=== PATIENT | female | born 1940 | race Caucasian/White ===

== ENCOUNTER 2018-05-16 05:49 | Inpatient (IN) | payer MEDICARE ==
[~2018-05-16] VITALS: Ht 152.4 cm; Wt 60.1 kg
[2018-05-16 06:05] LABS: Calcium, Ionized (POC) 1.12 mmol/L (1.10-1.46); Chloride (POC) 98 mmol/L (98-108); Creatinine (POC) 0.7 mg/dL (0.6-1.0); Glucose (ISTAT POC) 103 mg/dL (70-99); Hemoglobin (POC) 12.6 g/dL (12.0-16.0); Sodium (POC) 137 mmol/L (135-148); Total CO2 (POC) 26 mmol/L (21-32)
[2018-05-16 06:21] LABS: BASOPHILS ABSOLUTE AUTO 0.04 K/mm3 (0.00-0.23); BASOPHILS PERCENT AUTO 1 % (0-2); EOSINOPHILS PERCENT AUTO 2 % (0-6); Hematocrit 37.6 % (33.0-51.0); Hemoglobin 12.6 g/dL (11.5-16.0); IMMATURE GRAN ABSOLUTE AUTO 0.03 K/mm3 (0.00-0.10); IMMATURE GRAN PERCENT AUTO 0 % (0-1); LYMPHOCYTES ABSOLUTE AUTO 1.27 K/mm3 (0.84-5.20); LYMPHOCYTES PERCENT AUTO 19 % (21-46); MONOCYTES ABSOLUTE AUTO 0.69 K/mm3 (0.16-1.47); MONOCYTES PERCENT AUTO 10 % (4-13); Mean Corpuscular HGB 32.2 pg (26.0-34.0); Mean Corpuscular HGB Conc 33.5 g/dL (31.5-36.5); Mean Corpuscular Volume 96 fL (80-100); NEUTROPHILS ABSOLUTE AUTO 4.61 K/mm3 (1.96-9.15); NEUTROPHILS PERCENT AUTO 69 % (41-73); Platelet Count 288 K/mm3 (150-400); RDW Standard Deviation 41.9 fL (35.1-46.3); Red Blood Cell Count 3.91 M/mm3 (3.80-5.20); White Blood Cell Count 6.74 K/mm3 (4.00-11.30)
[2018-05-16 06:36] LABS: Alanine Aminotransfer (ALT/SGP 26 U/L (12-78); Albumin, Blood 3.2 g/dL (3.4-5.0); Albumin/Globulin Ratio 0.9 (0.8-1.8); Alk Phos 145 U/L (50-136); Anion Gap 9 mmol/L (6-16); Aspartate Aminotrans (AST/SGOT 23 U/L (12-37); Bilirubin, Total 0.5 mg/dL (0.1-1.0); Blood Urea Nitrogen 13 mg/dL (8-24); Bun/Creatinine Ratio 20.5 (12.0-20.0); CO2, Blood 27 mmol/L (21-32); Chloride, Blood 102 mmol/L (98-108); Creatinine, Blood 0.64 mg/dL (0.40-1.00); Globulin, Blood 3.5 g/dL (2.2-4.0); Glomerular Filtration Rate >60 (60-); Glucose, Blood 99 mg/dL (70-99); Magnesium, Blood 1.7 mg/dL (1.6-2.4); Potassium, Blood 3.2 mmol/L (3.5-5.5); Sodium, Blood 138 mmol/L (136-145); Total Protein, Blood 6.7 g/dL (6.4-8.2)
[2018-05-16] MEDS ORDERED: FOLBIC RF TABL1 EACH PO (07:55)
[2018-05-16] MEDS ORDERED: CITRACAL + D31 EACH PO (07:56)
[2018-05-16] MEDS ORDERED: LEVSOD50 PO (12:57)
[2018-05-16] MEDS ORDERED: ALLERCLEAR10 MG PO (12:58)
[2018-05-16] MEDS ORDERED: CRANBERRY250 MG PO (13:00)
[2018-05-16] MEDS ORDERED: ACET500 PO (13:01)
[2018-05-16] MEDS ORDERED: METO50 PO (13:01)
[2018-05-16] MEDS ORDERED: CITRACAL + D M1 EACH PO (13:05)
[2018-05-16] MEDS ORDERED: VITAMIN B122500 MCG PO (13:10)
[2018-05-16] MEDS ORDERED: PROBIOTIC-10 11 EACH PO (13:12)
[2018-05-16] MEDS ORDERED: Hair, Skin & N1 EACH PO (13:13)
[2018-05-16] MEDS ORDERED: ASPI81CH PO (13:14)
[2018-05-16] MEDS ORDERED: ATOR10 PO (13:15)
[2018-05-16 13:19] LABS: Prothrombin Time Results 10.6 Sec (9.7-11.5)
--- NOTE | 2018-05-17 04:44 | NUR ---
SHIFT SUMMARY: APPROXX 2029 PATIENT ARRIVED TO ROOM PCU16 VIA GURNEY FROM ER. PATIENT ALERT AND ORIENTED, ABLE TO TRANSFER FROM GURNEY TO BED AND FROM BED TO BSC WITH FWW AND 1 PERSON ASSIST, HEPARIN VARIFIED WITH SKULL SPLITTER AND CHARGE NURSE. PATIENT GLUTEAL AND CALVES CRAMPING INTERMITTENTLY, WARM BLANKETS AND PAIN MEDICATIONS PROVIDED WITH SOME RELIEF. STAFF FROM [facility] CALLED VERIFIYING PATIENT NPO AND STATING THAT THEY WOULD TRY FOR 1000 AM FOR PROCEEDURE. VSS, CALL LIGHT WITHIN REACH, BED LOW AND LOCKED.
[2018-05-17 05:47] LABS: Anion Gap 9 mmol/L (6-16); Blood Urea Nitrogen 13 mg/dL (8-24); Bun/Creatinine Ratio 25.3 (12.0-20.0); CHOL/HDL RATIO 2.8; CO2, Blood 26 mmol/L (21-32); Calcium, Blood 8.5 mg/dL (8.5-10.1); Chloride, Blood 105 mmol/L (98-108); Cholesterol 159 mg/dL (50-200); Creatinine, Blood 0.51 mg/dL (0.40-1.00); Glomerular Filtration Rate >60 (60-); Glucose, Blood 112 mg/dL (70-99); HDL Cholesterol 56 mg/dL (>39); LDL/HDL RATIO 1.5; Low Density Lipoprotein Chol 82 mg/dL (0-110); Potassium, Blood 3.7 mmol/L (3.5-5.5); Sodium, Blood 140 mmol/L (136-145); Triglycerides 103 mg/dL (30-160); Very Low Density Lipoprot Chol 20 mg/dL (6-32)
--- NOTE | 2018-05-17 08:13 | NUR ---
This student nurse was given permission by the patient to access their medical information.
--- NOTE | 2018-05-17 14:51 | NUR ---
1215 PT RECEIVED BACK FROM [facility] [place]. ALERT AND ORIENTED X3. RIGHT WRIST SOFT, NO BLEED OR HEMATOMA, TR BAND CDI. PT RESTING IN BED. 1415 TR BAND CDI. 2 CC OF AIR REMOVED, NO BLEED NOTED 1435 SLIGHT BLEEDING NOTED TO RIGHT WRIST TR BAND SITE. 1 CC OF AIR REPLACED, NO BLEEDING NOTED AT THIS TIME. WILL CONTINUE TO MONITOR.
--- NOTE | 2018-05-17 16:44 | NUR ---
SHIFT SUMMARY PT RESTING IN BED THROUGHOUT THE DAY. VSS. ALERT AND ORIENTED X3. LUNG SOUNDS CLEAR, NSR RATE 90s PER TELEMETRY. C/O 3/10 BACK PAIN, PT STATES PAIN IMPROVES WITH REPOSITIONING. PT TO [facility] TODAY. UPON RETURN, RIGHT WRIST SOFT, NO BLEED OR HEMATOMA, TR BAND CDI. AIR BEING REMOVED FROM TR BAND PER PROTOCOL, SOME OOZING NOTED, WILL CONTINUE TO MONITOR. PT UP TO BEDSIDE COMMODE AFTER PROCEDURE, NETWORK APPLICATIONS SPECIALIST STATES PT VERY UNSTEADY AND ALMOST FELL WHEN SHE GOT UP TO BEDSIDE COMMODE. WILL CONTINUE TO MONITOR. FAMILY AT BEDSIDE THIS AFTERNOON.
--- NOTE | 2018-05-18 04:56 | NUR ---
SHIFT SUMMARY: PATIENT MUSLE CRAMPS BETTER CONTROLLED THIS SHIFT WITH FREQUENT REPOSITIONING, TR BAND FULLY RECOVERED AT APPROX 2300 ON 05/17/18. NO SIGN OF HEMATOMA, BLEEDING, SENSATION LOSS OR CIRCULATION ISSUES. PATIENT VSS, CALL LIGHT WITHIN REACH, BED LOW AND LOCKED AND MONITORED CLOSELY.
[2018-05-18] MEDS ORDERED: CLOP75 PO (12:41)
--- NOTE | 2018-05-18 13:36 | NUR ---
Assumed Care: Assumed care of pt at approx 0700. VSS. In no apparent sign of distress. Pt is A&Ox4. Calls appropriately and repositions self. C/o some back pain - will medicate per orders. R radial access site checked at bedside with silvio PERALES. Plan is for possible DC home today. Pt requesting lidocane cream and heating pad. See shift assessment for detailed assessment. Pt currently resting in bed with call light within reach. Denies any further questions, complaints or requests at this time.
--- NOTE | 2018-05-18 20:06 | NUR ---
Discharge: Pt discharged at approx 1708. VSS. In no apparent sign of distress. Pt A&Ox4 at time of discharge. On RA. DC home w/HH. Daughter at bedside and is to help provide 24HR care to pt as per discussion of needed care w/DC neighborhood planner Sharron Nixon RN. No acute events or changes on tele. Pt ambulation improved on dischage. Pt discharged with all belongings in hand and provided with DC instructions as well as specific instructions on how to care for radial access site. Pt discharged via wheelchair with daughter.
== END 2018-05-18 17:08 | disposition home health service (06) | DRG 287 ==
LOC: ER 05:49 → ERHOLD 05:50 → PCU 16:52 → ERHOLD 16:52 → PCU 20:31
PROVIDERS: Emergency Medicine; ADMIT Internal Medicine
PROC: B2111ZZ Fluoroscopy of Multiple Coronary Arteries using Low Osmolar Contrast (ICD-10-PCS; principal; 2018-05-17)
PROC: 4A023N7 Measurement of Cardiac Sampling and Pressure, Left Heart, Percutaneous Approach (ICD-10-PCS; 2018-05-17)
DX: R07.89 Other chest pain (principal); I48.0 Paroxysmal atrial fibrillation; E78.5 Hyperlipidemia, unspecified; I10 Essential (primary) hypertension; Z79.82 Long term (current) use of aspirin; E87.6 Hypokalemia; E03.9 Hypothyroidism, unspecified; M54.9 Dorsalgia, unspecified; R53.1 Weakness
CPT/HCPCS: 36415; 72100; 80047; 80048; 80053; 80061; 83735; 84443; 84484; 85014; 85025; 85610; 85730; 86850; 86900; 86901; 93005; 93010; 93306; 93458; 96365; 96366; 96368; 96375; 97116; 97161; 97165; 97530; 97535; 99152; 99153; 99285-25; C1769; C1894; J1644; J1650; J2250; J2405; J3010; J3475; J3480; J7030; Q9967

== ENCOUNTER → 2020-10-29 | Outpatient (CLI) | payer MEDICARE ==
[~2020-10-29] MED LIST: ACET500 PO; ALLERCLEAR10 MG PO; ASPI81CH PO; ATOR10 PO; CITRACAL + D M1 EACH PO; CITRACAL + D31 EACH PO; CLOP75 PO; CRANBERRY250 MG PO; FOLBIC RF TABL1 EACH PO; Hair, Skin & N1 EACH PO; LEVSOD50 PO; METO50 PO; PROBIOTIC-10 11 EACH PO; VITAMIN B122500 MCG PO
== END | disposition home or self-care (01) ==
LOC: LAB SHORT 15:13 → LAB 15:13
DX: L72.0 Epidermal cyst (principal)
CPT/HCPCS: 88305

== ENCOUNTER 2025-02-14 10:27 | Day surgery (SDC) | payer MEDICARE ==
[~2025-02-14] VITALS: Ht 144.8 cm; Wt 53.5 kg
[~2025-02-14 10:27] MED LIST changes: +Balanced Salt Epinephrine Irrigation Solution 500 mL IR SCH; +Moxifloxacin HCL 0.5 MG/0.1 ML 0.4MLSYR LEFTEYE SCH; +Ondansetron 4 MG SoluTab MM PRN; +PHENYLEPHRINE\\TROPICAMIDE\\TETRACAINE OPHTHALMIC DILATING SOLN LEFTEYE PRN; +Povidone-Iodine 450 DROP/30 ML Solution LEFTEYE SCH; +Povidone-Iodine 450 DROP/30 ML Solution ONE; +Tetracaine HCl/Pf 0.5% Opth Soln 4 ml ONE; +Triamcinolone Inj Susp 40 MG / ML 1ML Vial INJ SCH; +Triamcinolone Inj Susp 40 MG / ML 1ML Vial ONE
[2025-02-14] MEDS ORDERED: KLOR-CON 1010 ME9 PO (11:07)
[2025-02-14] MEDS ORDERED: VALS80 PO (11:09)
[2025-02-14] MEDS ORDERED: NS 500 ML IV ONE (11:23)
--- NOTE | 2025-02-14 11:28 | NUR ---
02/14/25 1128 Antonella Abrams IN AT 1110. HA IN AT 1111. CALL LIGHT IN PLACE.
[2025-02-14] MEDS ORDERED: Midazolam HCl 1MG / ML 2ML Vial ONE (11:30)
[2025-02-14] MEDS ORDERED: Tetracaine HCl 0.5% Opth Soln 15 ml LEFTEYE ONE (11:39)
[2025-02-14 11:56] VITALS: BP 153/93
== END 2025-02-14 12:14 | disposition home or self-care (01) ==
LOC: ORSCSDS 10:27
PROVIDERS: Ophthalmology
PROC: 08RK3JZ Replacement of Left Lens with Synthetic Substitute, Percutaneous Approach (ICD-10-PCS; principal; 2025-02-14 12:00)
DX: H25.812 Combined forms of age-related cataract, left eye (principal); I10 Essential (primary) hypertension; E07.9 Disorder of thyroid, unspecified; Z79.82 Long term (current) use of aspirin; Z79.899 Other long term (current) drug therapy
CPT/HCPCS: J2250; J3301; V2632

== ENCOUNTER 2025-02-21 10:33 | Day surgery (SDC) | payer MEDICARE ==
[~2025-02-21] VITALS: Ht 144.8 cm; Wt 53.4 kg
[~2025-02-21 10:33] MED LIST changes: +KLOR-CON 1010 ME9 PO; -Moxifloxacin HCL 0.5 MG/0.1 ML 0.4MLSYR LEFTEYE SCH; +Moxifloxacin HCL 0.5 MG/0.1 ML 0.4MLSYR RIGHTEYE SCH; +NS 500 ML IV ONE; -Ondansetron 4 MG SoluTab MM PRN; -PHENYLEPHRINE\\TROPICAMIDE\\TETRACAINE OPHTHALMIC DILATING SOLN LEFTEYE PRN; +PHENYLEPHRINE\\TROPICAMIDE\\TETRACAINE OPHTHALMIC DILATING SOLN RIGHTEYE PRN; -Povidone-Iodine 450 DROP/30 ML Solution LEFTEYE SCH; +Povidone-Iodine 450 DROP/30 ML Solution RIGHTEYE SCH; +VALS80 PO
[2025-02-21] MEDS ORDERED: NS 1,000 ML IV ONE (11:02)
[2025-02-21] MEDS ORDERED: Midazolam HCl 1MG / ML 2ML Vial ONE (11:27)
[2025-02-21] MEDS ORDERED: Tetracaine HCl 0.5% Opth Soln 15 ml RIGHTEYE ONE (11:35)
[2025-02-21 11:49] VITALS: BP 170/88
--- NOTE | 2025-02-21 12:34 | NUR ---
02/21/25 1234 HALEY ALAMO PTGIVEN PAPER TAPE PT IS GOING TO SEE DR DUMAS TODAY @ [phone] OVERTON INSTEAD OF 1630 DUE TO IN FAMILY- MORTUARY APT W/ FAMILY IN [place] TODAY SO THEY WONT BE ABLE TO COME LATER FOR FOLLOW UP.
== END 2025-02-21 12:06 | disposition home or self-care (01) ==
LOC: ORSCSDS 10:33
PROVIDERS: Ophthalmology
PROC: 08RJ3JZ Replacement of Right Lens with Synthetic Substitute, Percutaneous Approach (ICD-10-PCS; principal; 2025-02-21 12:00)
DX: H25.811 Combined forms of age-related cataract, right eye (principal); Z96.1 Presence of intraocular lens; I10 Essential (primary) hypertension; K21.9 Gastro-esophageal reflux disease without esophagitis; E07.9 Disorder of thyroid, unspecified; Z79.899 Other long term (current) drug therapy
CPT/HCPCS: J2250; J3301; J7040; V2632